=== PATIENT | female | born 1985 | race Caucasian/White ===

== ENCOUNTER 2018-11-30 09:55 | Emergency (ER) | payer BC ==
[2018-11-30] MEDS ORDERED: Metoclopramide IV* 5 MG/ML 2 ML VIAL IV ONE (10:06)
[2018-11-30] MEDS ORDERED: NS 0.9% 1000 ML** 2,000 ML IV ONE (10:06)
[2018-11-30 10:26] LABS: ABS Eosinophils 0.1 10^3/ul (0-0.6); ABS Lymphocytes 1.1 10^3/ul (1.0-4.8); ABS Monocytes 0.5 10^3/ul (0-0.8); ABS Neutrophils 7.3 10^3/ul (1.5-7.7); Eosinophil % 0.7 %; Hematocrit 34 % (35-47); Hemoglobin 11.8 g/dL (12.0-16.0); Lymphocyte % 12.6 %; Mean Corpuscular HGB Conc 35 g/dL (31-36); Mean Corpuscular Hemoglobin 30 pg (27-31); Mean Corpuscular Volume 86 fL (80-97); Mean Platelet Volume 6.9 fL (7.4-10.4); Nucleated Red Blood Cells % 0.1; Platelet Count 327 10^3/uL (150-450); Red Blood Count 3.99 10^6 /uL (3.70-4.87); Red Cell Distribution Width 13 % (10-15)
[2018-11-30 10:43] LABS: Albumin/Globulin Ratio 1.4 (1-3); BUN/Creatinine Ratio 15.9 (8-20); C Reactive Protein 2.42 mg/L (<8.01); EGFR African American 130.1 (>60); EGFR Non-African American 107.5 (>60); Globulin 2.9 g/dL (2-4); Magnesium 1.8 mg/dL (1.9-2.7); Potassium 3.6 mmol/L (3.5-5.0); Total Bilirubin 0.6 mg/dL (0.2-1.0); Total Protein 6.9 g/dL (6.4-8.9)
--- NOTE | 2018-11-30 11:06 | ED ---
- HPI Summary HPI Summary: This is a 33-year-old 15 week female presenting to the ED with profuse nausea vomiting 4 days. She states she's had this with her previous , however this is worse. She does not have any medications at home at this time. She states she tends to try B6 [id number], but was unable to receive a prescription for this. She has seen a special education assistant at [facility] and has an US which shows 15 week fetus. She denies any pain, vaginal discharge or UTI sxs. - History of Current Complaint Chief Complaint: EDNauseaVomitDiarrh Stated Complaint: - VOMITING FOR THREE DAYS PER PT Time Seen by Provider: 11/30/18 10:01 Hx Obtained From: Patient Chief Complaint: Other: - nausea and vomiting in Timing: Constant Severity: Moderate Current Severity: Moderate Pain Intensity: 0 Character: None Associated Signs and Symptoms: Positive: Negative - Allergies/Home Medications Allergies/Adverse Reactions: Allergies Allergy/AdvReac Type Severity Reaction Status Date / Time No Known Allergies Allergy Verified 11/30/18 09:57 Home Medications: Home Medications Vitamin TAB* 1 tab PO DAILY 11/30/18 [History Confirmed 11/30/18] PMH/Surg Hx/FS Hx/Imm Hx Previously Healthy: Yes - Immunization History Hx Pertussis Vaccination: No Immunizations Up to Date: Yes Infectious Disease History: No Infectious Disease History: Denies: Traveled Outside the [place] in Last 30 Days - Social History Occupation: Employed Full-time Lives: With Family Alcohol Use: None Hx Substance Use: No Substance Use Type: Reports: None Hx Tobacco Use: Yes Smoking Status (MU): Former Smoker Review of Systems Constitutional: Negative Negative: Fever, Chills, Fatigue, Skin Diaphoresis Negative: Palpitations, Chest Pain Negative: Shortness Of Breath, Cough Positive: Abdominal Pain Genitourinary: Negative Positive: no symptoms reported, see HPI Negative: Rash Neurological: Negative All Other Systems Reviewed And Are Negative: Yes Physical Exam - Physical Exam Triage Information Reviewed: Yes Vital Signs Reviewed: Yes Appearance: Positive: Well-Appearing, Well-Nourished Skin: Positive: Warm, Skin Color Reflects Adequate Perfusion Head/Face: Positive: Normal Head/Face Inspection Eyes: Positive: EOMI, JOSIAH, Conjunctiva Clear Neck: Positive: Supple, No Lymphadenopathy Respiratory/Lung Sounds: Positive: Clear to Auscultation, Breath Sounds Present Cardiovascular: Positive: RRR, Pulses are Symmetrical in both Upper and Lower Extremities Abdomen Description: Positive: Nontender, Soft Musculoskeletal: Positive: Normal, Strength/ROM Intact Neurological: Positive: Speech Normal Psychiatric: Positive: Normal, Affect/Mood Appropriate AVPU Assessment: Verbal (Reponds To) Diagnostics - Vital Signs Vital Signs Temp Pulse Resp BP Pulse Ox 11/30/18 09:58 99.2 F 105 18 123/77 98 - Laboratory Lab Results: Lab Results 11/30/18 11/30/18 11/30/18 Range/Units 10:19 10:19 10:19 WBC 9.0 (3.5-10.8) 10^3/uL RBC 3.99 (3.70-4.87) 10^6 /uL Hgb 11.8 L (12.0-16.0) g/dL Hct 34 L (35-47) % MCV 86 (80-97) fL MCH 30 (27-31) pg MCHC 35 (31-36) g/dL RDW 13 (10-15) % Plt Count 327 (150-450) 10^3/uL MPV 6.9 L (7.4-10.4) fL Neut % (Auto) 81.1 % Lymph % (Auto) 12.6 % [place] % (Auto) 5.2 % Eos % (Auto) 0.7 % Baso % (Auto) 0.4 % Absolute Neuts (auto) 7.3 (1.5-7.7) 10^3/ul Absolute Lymphs (auto) 1.1 (1.0-4.8) 10^3/ul Absolute Monos (auto) 0.5 (0-0.8) 10^3/ul Absolute Eos (auto) 0.1 (0-0.6) 10^3/ul Absolute Basos (auto) 0.0 (0-0.2) 10^3/ul Absolute Nucleated RBC 0.0 10^3/ul Nucleated RBC % 0.1 Sodium 136 (135-145) mmol/L Potassium 3.6 (3.5-5.0) mmol/L Chloride 103 (101-111) mmol/L Carbon Dioxide 24 (22-32) mmol/L Anion Gap 9 (2-11) mmol/L BUN 10 (6-24) mg/dL Creatinine 0.63 (0.51-0.95) mg/dL Est GFR ( Amer) 130.1 (>60) Est GFR (Non-Af Amer) 107.5 (>60) BUN/Creatinine Ratio 15.9 (8-20) Glucose 87 (70-100) mg/dL Lactic Acid 0.8 (0.5-2.0) mmol/L Calcium 9.0 (8.6-10.3) mg/dL Magnesium 1.8 L (1.9-2.7) mg/dL Total Bilirubin 0.60 (0.2-1.0) mg/dL AST 15 (13-39) U/L ALT 13 (7-52) U/L Alkaline Phosphatase 40 (34-104) U/L C-Reactive Protein 2.42 (<8.01) mg/L Total Protein 6.9 (6.4-8.9) g/dL Albumin 4.0 (3.2-5.2) g/dL Globulin 2.9 (2-4) g/dL Albumin/Globulin Ratio 1.4 (1-3) Lipase 24 (11.0-82.0) U/L Result Diagrams: 11/30/18 10:19 09 10:19 Lab Statement: Any lab studies that have been ordered have been reviewed, and results considered in the medical decision making process. Course/Dx - Course Course Of Treatment: During his course treatment, the patient is evaluated for nausea, vomiting 4 days. Patient is 15 weeks . Patient is . Bedside US by Dr. Amador and myself shows 15 week fetus with adequate HR. She is given reglan and 2L fluids with symptom relief. Denies other concerns at this time. She is given Reglan and Zofran as prescription. Patient is able to eat crackers and applesauce and remains asymptomatic. She will be discharged home with nausea and vomiting in . - Differential Diagnosis/HQI/PQRI: Other: - nausea and vomiting, - Diagnoses Provider Diagnoses: Nausea and vomiting during Discharge ED - Sign-Out/Discharge Documenting (check all that apply): Patient Departure Patient Received Moderate/Deep Sedation with Procedure: No - Discharge Plan Condition: Stable Disposition: HOME Prescriptions: Metoclopramide TAB* [Reglan TAB*] 10 mg PO Q8H #15 tab MDD 3 Ondansetron ODT TAB* [Zofran 4 MG Odt TAB*] 4 mg PO Q6H PRN #12 tab.odt MDD 4 PRN Reason: Nausea Patient Education Materials: Nausea and Vomiting in (ED) Referrals: No Primary Care Phys,NOPCP [Primary Care Provider] - Additional Instructions: Please follow up with our OBGYN associates Reglan up to three times daily as needed for nausea If unable to keep these down, zofran up to three times daily as needed for nausea eat small amounts at a time including crackers and chicken noodle soup, toast and applesauce - Billing Disposition and Condition Condition: STABLE Disposition: Home
[2018-11-30 12:54] LABS: Urine Appearance Cloudy; Urine Bacteria Absent (Absent); Urine Bilirubin Negative (Negative); Urine Blood Negative (Negative); Urine Color Yellow; Urine Glucose Negative (Negative); Urine Ketones 2+ (Negative); Urine Nitrite Negative (Negative); Urine Protein 1+(30 mg/dL) (Negative); Urine Red Blood Cell Trace(0-2/hpf) (Absent); Urine Specific Gravity 1.028 (1.010-1.030); Urine Squamous Epithelial Cell Present (Absent); Urine Urobilinogen Negative (Negative); Urine White Blood Cell Trace(0-5/hpf) (Absent)
[2018-11-30 13:13] VITALS: BP 112/58
== END 2018-11-30 13:20 | disposition home or self-care (01) ==
LOC: ED 09:55
DX: O21.0 Mild hyperemesis gravidarum (principal); Z3A.15 15 weeks gestation of pregnancy; Z79.899 Other long term (current) drug therapy; Z87.891 Personal history of nicotine dependence
CPT/HCPCS: 36415; 80053; 81003; 81015; 83605; 83690; 83735; 85025; 86140; 87086; 96361; 96374; 99283; J2765

== ENCOUNTER 2019-05-26 17:21 | Inpatient (IN) | payer BC ==
[2019-05-26] MEDS ORDERED: Penicillin G Potassium IV* 5,000,000 UNITS in NS 0.9% 100 ML* 100 ML IVPB ONE ×2 (18:30→18:54)
[2019-05-26] MEDS ORDERED: Buffered Lidocaine 1% SYRIN* 1 ML/SYRINGE INTRADERM ONE (18:54)
[2019-05-26] MEDS ORDERED: Lactated Ringers 1000 ML Bag* 1,000 ML IV SCH ×3 (19:00→22:00)
[2019-05-26 19:15] LABS: ABS Eosinophils 0.1 10^3/ul (0-0.6); ABS Lymphocytes 1.9 10^3/ul (1.0-4.8); ABS Monocytes 0.6 10^3/ul (0-0.8); ABS Neutrophils 10.4 10^3/ul (1.5-7.7); Eosinophil % 0.8 %; Hematocrit 35 % (35-47); Hemoglobin 11.9 g/dL (12.0-16.0); Lymphocyte % 14.7 %; Mean Corpuscular HGB Conc 34 g/dL (31-36); Mean Corpuscular Hemoglobin 29 pg (27-31); Mean Corpuscular Volume 86 fL (80-97); Mean Platelet Volume 9.6 fL (7.4-10.4); Platelet Count 276 10^3/uL (150-450); Red Blood Count 4.08 10^6 /uL (3.70-4.87); Red Cell Distribution Width 13 % (10-15); White Blood Count 13.2 10^3/uL (3.5-10.8)
--- NOTE | 2019-05-26 19:22 | HP ---
General Information - Reason for Visit Contractions every 2-3min. - General Information Maternal Age: 33 Grav: 2 Para: 1 SAB: 0 IEA: 0 Estimated Due Date: 05/24/19 Determined By: LMP Maternal Blood Type and Rh: O Positive - Results this Serology/RPR Result: Non-Reactive Rubella Result: Immune HBsAg Result: Negative HIV Result: Negative GBS Culture Result: Positive Past Medical History Delivery History: Hx Uncomplicated Vaginal Delivery Pertinent Past Medical History: See Records Pertinent Past Surgical History: None Pertinent Family History: Non-Contributory - Antepartal Records Antepartal Records: Reviewed, Uncomplicated Review of Systems Constitutional: Comfortable CV Complaint: No Respiratory: Shortness of Breath: No Gastrointestinal: No Nausea/Vomiting, Normal Bowel Movement Genitourinary: Bleeding - spotting since arrival at hospital, No Dysuria, No Leaking Fluid Musculoskeletal: Contractions Neurological: No Headache Movement: Normal Exam Allergies/Adverse Reactions: Allergies peanut Allergy (Severe, Verified 05/26/19 17:50) Anaphylatic Shock avocado Allergy (Verified 05/26/19 17:51) Anaphylatic Shock banana Allergy (Verified 05/26/19 17:51) Anaphylatic Shock Lab Values - Entire Visit: Laboratory Tests 05/26/19 18:43 WBC 13.2 H RBC 4.08 Hgb 11.9 L Hct 35 MCV 86 MCH 29 MCHC 34 RDW 13 Plt Count 276 MPV 9.6 Neut % (Auto) 79.2 Lymph % (Auto) 14.7 [place] % (Auto) 4.9 Eos % (Auto) 0.8 Baso % (Auto) 0.4 Absolute Neuts (auto) 10.4 H Absolute Lymphs (auto) 1.9 Absolute Monos (auto) 0.6 Absolute Eos (auto) 0.1 Absolute Basos (auto) 0.0 Absolute Nucleated RBC 0.0 Nucleated RBC % 0.0 - Measurements Height: 5 ft 7 in Weight: 182 lb Weight in lbs: [id number] Body Mass Index (BMI): 28.5 Pre- Weight: 159 lb Weight Gained This : 23 lbs and 0 ozs - Exam Breast: Breast Exam Deferred CVA: No CVA Tenderness Extremities: No Edema Heart: Normal Rhythm/Heart Sounds HEENT: No Significant Findings - Abdominal Exam Abdomen Exam: Non-Tender - Ultrasound/Biophysical Profile Ultrasound Status: Not Done Targeted Exam Findings Cervical Exam: 5cm - by RN EFM Findings - External Monitor Findings Baseline Heart Rate: 135 External Monitor Findings: Accelerations Present, No Pattern of Variable or Late Decelerations, Variability Moderate, Baseline Stable Contractions: Regular - q2-3 Assessment/Plan - Assessment @40.2wks, labor - Obstetrical Risk Factors Obstetrical Risk Factors: GBS Positive - Plan Plan: Observe, Admit - Anticipate Vaginal Delivery
[2019-05-26 19:33] LABS: Urine Benzodiazepine Screen None Detected (None Detect); Urine Opiates Screen None Detected (None Detect)
[2019-05-26] MEDS: Lactated Ringers 1000 ML Bag* 1,000 ML IV ONE (21:11)
[2019-05-26] MEDS ORDERED: OBEPIDURAL* 250 ML EPIDURAL ONE (21:30)
[2019-05-26] MEDS ORDERED: Sodium Citrate/Citric Acid* 15 ML UDC PO PRN (21:53)
[2019-05-26] MEDS ORDERED: Phenylephrine 40 MCG/ML SYRINGE IV PUSH PRN ×2 (21:53)
[2019-05-26] MEDS ORDERED: Lactated Ringers 1000 ML Bag* 1,000 ML IV ONE (21:53)
[2019-05-26] MEDS ORDERED: OBEPIDURAL* 250 ML EPIDURAL SCH (22:00)
[2019-05-26] MEDS: Penicillin G Potassium IV* 3,000,000 UNITS in NS 0.9% 100 ML* 100 ML IVPB SCH (22:27)
[2019-05-27] MEDS ORDERED: Dibucaine 1% 28.35 GM TUBE ONE (01:24)
[2019-05-27] MEDS ORDERED: Witch Hazel PAD* JAR ONE (01:24)
[2019-05-27] MEDS ORDERED: Oxytocin in LR* 20 UNITS/1,000 ML BAG IVPB ONE (01:33)
[2019-05-27] MEDS ORDERED: Glycerin ADULT SUPP PR PRN (01:49)
--- NOTE | 2019-05-27 01:58 | PROCNOTE ---
[facility] OB: Delivery Note - Delivery A Date of : 05/27/19 Time of : 01:28 Weight at : 7 lb 15 oz Score 1 Minute: 8 Score 5 Minutes: 9 Gestational Age in Weeks and Days at Delivery: 40 Weeks and 3 Days Delivery Method: Spontaneous Vaginal Labor: Spontaneous Amniotic Fluid: Meconium Estimated Blood Loss: 200 Anesthesia/Analgesia: ITF/Spinal for Labor Delivered By: Mattie Gilbert - Additional Delivery Notes Additional Delivery Notes: Pt presented in active labor and progressed to fully dilated over about 8hrs during which she received an epidural. She then pushed for about 1.5hrs to deliver the 's head in OA position followed quickly by the shoulders and the rest of the body. The baby was placed on mom's abdomen. The cord was clamped x2 and cut after >1min. The placenta delivered with gentle cord traction and fundal massage and appeared to be intact. A first degree laceration was repaired with 3-0 vicryl rapide. Fundus was firm with good hemostasis.
[2019-05-27] MEDS ORDERED: Lactated Ringers 1000 ML Bag* 1,000 ML IV SCH (03:00)
[2019-05-27] MEDS ORDERED: Ammonia Inhalant* 1 EA AMP ONE (04:09)
[2019-05-27] MEDS: Ibuprofen TAB* 600 MG PO PRN ×3 (04:19→21:36)
[2019-05-27] MEDS: Dibucaine 1% 28.35 GM TUBE PR PRN (04:20)
[2019-05-27] MEDS: Witch Hazel PAD* JAR TOPICAL PRN ×2 (04:20→21:44)
[2019-05-27] MEDS: Penicillin G Potassium IV* 3,000,000 UNITS in NS 0.9% 100 ML* 100 ML IVPB SCH (06:15)
[2019-05-27] MEDS ORDERED: Simethicone TAB* 80 MG TAB.CHEW PO SCH (08:30)
[2019-05-27] MEDS: Acetaminophen TAB* 325 MG PO PRN ×2 (08:46→21:36)
[2019-05-27] MEDS: Docusate CAP* 100 MG PO SCH ×3 (08:46→21:36)
[2019-05-27] MEDS: Lactated Ringers 1000 ML Bag* 1,000 ML IV ONE (12:16)
[2019-05-28] MEDS: Ibuprofen TAB* 600 MG PO PRN ×3 (03:59→21:04)
[2019-05-28] MEDS: Acetaminophen TAB* 325 MG PO PRN (03:59)
[2019-05-28 07:58] LABS: ABS Basophils 0.1 10^3/ul (0-0.2); ABS Eosinophils 0.2 10^3/ul (0-0.6); ABS Lymphocytes 2.3 10^3/ul (1.0-4.8); ABS Monocytes 0.6 10^3/ul (0-0.8); ABS Neutrophils 5.7 10^3/ul (1.5-7.7); Eosinophil % 2.1 %; Hematocrit 28 % (35-47); Hemoglobin 9.5 g/dL (12.0-16.0); Lymphocyte % 26.4 %; Mean Corpuscular HGB Conc 34 g/dL (31-36); Mean Corpuscular Hemoglobin 30 pg (27-31); Mean Corpuscular Volume 87 fL (80-97); Mean Platelet Volume 8.9 fL (7.4-10.4); Platelet Count 231 10^3/uL (150-450); Red Blood Count 3.21 10^6 /uL (3.70-4.87); Red Cell Distribution Width 14 % (10-15); White Blood Count 8.8 10^3/uL (3.5-10.8)
[2019-05-28] MEDS: Ferrous Gluconate TAB* 324 MG TAB PO SCH ×2 (09:13→21:04)
[2019-05-28] MEDS: Docusate CAP* 100 MG PO SCH ×3 (09:13→21:04)
[2019-05-28] MEDS: Dibucaine 1% 28.35 GM TUBE PR PRN (09:57)
[2019-05-28 19:59] VITALS: BP 126/66
[2019-05-29] MEDS: Ibuprofen TAB* 600 MG PO PRN (04:26)
[2019-05-29] MEDS: Ferrous Gluconate TAB* 324 MG TAB PO SCH (09:37)
[2019-05-29] MEDS: Docusate CAP* 100 MG PO SCH (09:37)
== END 2019-05-29 10:02 | disposition home or self-care (01) | DRG 560 ==
LOC: MCHOBOUT 17:21 → MCHOB 18:17
PROVIDERS: ADMIT Obstetrics & Gynecology; ATTEND Obstetrics & Gynecology
PROC: 4A1HXCZ Monitoring of Products of Conception, Cardiac Rate, External Approach (ICD-10-PCS; 2019-05-26)
PROC: 10907ZC Drainage of Amniotic Fluid, Therapeutic from Products of Conception, Via Natural or Artificial Opening (ICD-10-PCS; 2019-05-26)
PROC: 10E0XZZ Delivery of Products of Conception, External Approach (ICD-10-PCS; principal; 2019-05-27)
PROC: 0HQ9XZZ Repair Perineum Skin, External Approach (ICD-10-PCS; 2019-05-27)
DX: O48.0 Post-term pregnancy (principal); Z37.0 Single live birth; O99.824 Streptococcus B carrier state complicating childbirth; Z3A.40 40 weeks gestation of pregnancy; O70.0 First degree perineal laceration during delivery; O77.0 Labor and delivery complicated by meconium in amniotic fluid; O90.81 Anemia of the puerperium; O69.81X0 Labor and delivery complicated by cord around neck, without compression, not applicable or unspecified; Z91.010 Allergy to peanuts; Z91.018 Allergy to other foods
CPT/HCPCS: 36415; 80307; 85025; 86850; 86900; 86901; A9270-GY; G0480; J2540